=== PATIENT | male | born 1980 | race Caucasian/White ===

== ENCOUNTER → 2021-10-17 | Day surgery (SDC) | payer OTHER ==
[~2021-10-17] VITALS: Ht 167.6 cm; Wt 85.0 kg
[~2021-10-17] MED LIST: GABA-585 PO; IV RINGERS,LACTATED 1000ML 1,000 ML IV SCH; MELA3TAB43 PO; OMEP20CA16 PO; PROP60CA36 PO; PROPOFOL 10 MG/ML (20ML) VIAL. IV ONE
[2021-10-17 06:18] VITALS: BP 133/90
[2021-10-17 07:54] VITALS: BP 106/62
--- NOTE | 2021-10-17 08:01 | HP ---
DATE OF SERVICE: 10/17/2021 ADMIT DATE: 10/17/2021 UPDATED HISTORY AND PHYSICAL REASON: Heartburn. REFERRING PHYSICIAN: Dr. Chase Gilbert. HISTORY OF PRESENT ILLNESS: A 40-year-old male with past medical history significant for hypertension, gastroesophageal reflux disease seen with intractable symptoms. He had symptoms for over a decade with switches and PPIs with continued issues. Alcohol, nicotine, or caffeine use is noted. Weight and appetite are stable. Antacids including Gaviscon and Tums has been utilized for breakthrough symptoms and with continued issues request additional evaluation. PAST MEDICAL HISTORY: GERD, hypertension. ALLERGIES: None. MEDICATIONS: Gabapentin, melatonin, omeprazole, propranolol. PAST MEDICAL HISTORY: As stated. FAMILY HISTORY: Significant for diabetes, heart disease. Stroke with his father. Diabetes with his mother. Hypertension with his father. SOCIAL HISTORY: Former smoker. Minimal caffeine use. PAST SURGICAL HISTORY: Significant for hernia repair. REVIEW OF SYSTEMS: Per records. PHYSICAL EXAMINATION: GENERAL: Reveals a well-nourished, well-developed male who is alert, cooperative, in no acute distress. VITAL SIGNS: Temperature 97, pulse 61, respiratory rate 18. LUNGS: Clear. CARDIOVASCULAR: Reveals an S1, S2, without S3, S4 or appreciable murmur. ABDOMEN: Reveals a soft abdomen, normal bowel sounds, without appreciable hepatosplenomegaly. IMPRESSION AND PLAN: Intractable heartburn. Differential includes Knight's achalasia, malignancy, gastroparesis, hiatal hernia. Therefore, I recommend upper endoscopy to further assess. Risks, benefits have been previously discussed. The patient is willing to proceed at this time. CAMLIO VARGAS: Vivi TID: [id number]
--- NOTE | 2021-10-22 13:09 | PATHOLOGY ---
[facility] Accession Number: [id number] . 01 Material submitted: . esophagus - DISTAL ESOPHAGUS BIOPSY. Modifiers: distal . 01 Clinical history: . GERD EGD RULE OUT BUTTS'S INTRACTABLE HEARTBURN . 02 Diagnosis: Esophagus, "distal", biopsy: - Esophageal squamous mucosa with features of reflux esophagitis. - Negative for intestinal metaplasia, dysplasia, and malignancy. (DAMARISK:[place]; 10/21/2021) [facility] 10/21/2021 1808 Local . 02 Electronically signed: . Paulo Pearson MD, Pathologist NPI- [id number] . 01 Gross description: . The specimen is received in formalin, labeled "Monroe, George, distal esophagus BX". Received are 5 segments of pale parrish tissue ranging in size from 0.2 cm to 0.6 cm in maximum dimensions. The specimen is submitted entirely in cassette A1.([facility]; 10/20/2021) [facility] 10/20/2021 1117 Local . 02 Pathologist provided ICD-10: K21.00 . 02 CPT . 749790 Specimen Comment: A courtesy copy of this report has been sent to [phone], [phone] Specimen Comment: [phone] Specimen Comment: Report sent to / DR NOLAN Performed at: 01 [facility] [address], [place] [id number] MD [place] Pacheco MD Phone: [phone] Performed at: 02 [facility] [address], [place] [id number] MD George Childers MD Phone: [phone]
== END | disposition home or self-care (01) ==
LOC: ENDOS 06:12 → EEVIPCON 07:30
PROVIDERS: ATTEND Internal Medicine Gastroenterology
DX: K21.00 Gastro-esophageal reflux disease with esophagitis, without bleeding (principal); T18.2XXA Foreign body in stomach, initial encounter; K31.89 Other diseases of stomach and duodenum; R12 Heartburn; K44.9 Diaphragmatic hernia without obstruction or gangrene; I10 Essential (primary) hypertension; Z20.822 Contact with and (suspected) exposure to COVID-19; Z87.891 Personal history of nicotine dependence; Z79.899 Other long term (current) drug therapy; Z98.890 Other specified postprocedural states; X58.XXXA Exposure to other specified factors, initial encounter; Y93.89 Activity, other specified; Y92.89 Other specified places as the place of occurrence of the external cause; Y99.8 Other external cause status
CPT/HCPCS: 43239; 87426; J2704